=== PATIENT | male | born 1970 | race Caucasian/White ===

== ENCOUNTER 2019-03-29 17:15 | Emergency (ER) | payer BC ==
[~2019-03-29] VITALS: Ht 177.8 cm; Wt 84.5 kg
[~2019-03-29 17:15] MED LIST: ALBUTEROL0.09 MG/A1 IH; AZITHROMYCIN250 MG PO; NO HOME MEDICATIONS; PERCOCET 5/321 UDTAB PO
[2019-03-29 17:20] VITALS: TEMP 97.7
[2019-03-29 17:52] LABS: BASO % 0.4 % (0.0-2.0); EOS # 0.2 (0.0-0.7); EOS % 1.9 % (0-4.0); GRAN % 81.7 % (42.2-75.2); HEMATOCRIT 42.3 % (42.0-52.0); HEMOGLOBIN 14.5 g/dl (13.5-18.0); LYMPH # 0.9 (1.2-3.4); LYMPH % 9.3 % (20.0-51.0); MEAN CELL VOLUME 86 fl (80.0-100.0); MEAN CORPUSCULAR HEMOGLOBIN 30 pg (27.0-31.0); MEAN CORPUSCULAR HGB CONC 34 g/dl (33.0-37.0); MEAN PLATELET VOLUME 9.1 fl (7.4-10.4); MONO # 0.6 (0.1-0.6); MONO % 6.3 % (1.7-9.3); PLATELET COUNT 183 K/mm3 (130-400); REDCELL DISTRIBUTION WIDTH-CV 12.1 % (11.5-14.5)
[2019-03-29 18:04] LABS: ALBUMIN 3.9 gm/dL (3.5-5.0); CALCIUM 8.8 mg/dL (8.4-10.2); CREATININE, serum 0.92 (0.66-1.25); TOTAL PROTEIN 7.5 gm/dL (6.4-8.2)
[2019-03-29] MEDS ORDERED: DOXYCYCLINE 10100 MG PO (18:30)
[2019-03-29 19:08] VITALS: BP 160/90; PULSE 93
== END 2019-03-29 19:08 | disposition home or self-care (01) ==
LOC: COL.ER 17:15
PROVIDERS: Nurse Practitioner
DX: J18.1 Lobar pneumonia, unspecified organism (principal); I10 Essential (primary) hypertension
CPT/HCPCS: J7030

== ENCOUNTER 2021-03-10 13:08 | Inpatient (IN) | payer SELFPAY ==
[~2021-03-10] VITALS: Ht 175.3 cm; Wt 74.3 kg
[~2021-03-10 13:08] MED LIST changes: +DOXYCYCLINE 10100 MG PO
[2021-03-10] MEDS ORDERED: PRINIVIL20 MG PO (13:10)
[2021-03-10 15:17] LABS: GRAN # 5.2 (1.4-6.5); GRAN % 85.7 % (42.2-75.2); HEMATOCRIT 44.7 % (42.0-52.0); HEMOGLOBIN 15.6 g/dl (13.5-18.0); LYMPH # 0.6 (1.2-3.4); LYMPH % 10.1 % (20.0-51.0); MEAN CELL VOLUME 86 fl (80.0-100.0); MEAN CORPUSCULAR HEMOGLOBIN 30 pg (27.0-31.0); MEAN CORPUSCULAR HGB CONC 35 g/dl (33.0-37.0); MEAN PLATELET VOLUME 9.8 fl (7.4-10.4); MONO # 0.2 (0.1-0.6); PLATELET COUNT 142 K/mm3 (130-400); RED BLOOD COUNT 5.19 M/mm3 (4.20-5.60); REDCELL DISTRIBUTION WIDTH-CV 11.9 % (11.5-14.5)
[2021-03-10 15:33] LABS: ALBUMIN 4.1 gm/dL (3.5-5.0); BILIRUBIN,TOTAL 0.7 mg/dL (0.0-1.0); CALCIUM 8.7 mg/dL (8.4-10.2); CREATININE, serum 0.86 (0.66-1.25); POTASSIUM 3.9 mmol/L (3.4-5.0); TOTAL PROTEIN 7.9 gm/dL (6.4-8.2)
[2021-03-10 15:38] LABS: C-REACTIVE PROTEIN 8.1 mg/dL (0.0-0.9)
[2021-03-10 18:26] VITALS: BP 137/81; PULSE 88; TEMP 98.3
--- NOTE | 2021-03-10 19:27 | NUR ---
REPORT RECIEVED FROM ED.
[2021-03-10 19:52] VITALS: BP 128/80; PULSE 93; TEMP 98.4
[2021-03-11 00:13] VITALS: BP 150/94; PULSE 77; TEMP 98
[2021-03-11 04:12] VITALS: BP 122/74; PULSE 77; TEMP 97.8
[2021-03-11 07:25] VITALS: BP 144/82; PULSE 84; TEMP 97.9
[2021-03-11 08:09] LABS: GRAN % 68.3 % (42.2-75.2); HEMATOCRIT 43.7 % (42.0-52.0); LYMPH # 0.7 (1.2-3.4); LYMPH % 25.3 % (20.0-51.0); MEAN CELL VOLUME 87 fl (80.0-100.0); MEAN CORPUSCULAR HEMOGLOBIN 30 pg (27.0-31.0); MEAN CORPUSCULAR HGB CONC 34 g/dl (33.0-37.0); MEAN PLATELET VOLUME 9.7 fl (7.4-10.4); MONO # 0.2 (0.1-0.6); PLATELET COUNT 155 K/mm3 (130-400); REDCELL DISTRIBUTION WIDTH-CV 11.9 % (11.5-14.5)
[2021-03-11 08:22] LABS: ALBUMIN 3.9 gm/dL (3.5-5.0); BILIRUBIN,TOTAL 0.6 mg/dL (0.0-1.0); CALCIUM 8.8 mg/dL (8.4-10.2); CREATININE, serum 0.92 (0.66-1.25); POTASSIUM 4.3 mmol/L (3.4-5.0); TOTAL PROTEIN 7.7 gm/dL (6.4-8.2)
[2021-03-11 08:37] LABS: C-REACTIVE PROTEIN 13.2 mg/dL (0.0-0.9)
--- NOTE | 2021-03-11 10:24 | NUR ---
The patient is COVID positive. SW contacted the patient to discuss discharge plan. The patient lives in [place] with his , Jessie (ph#[phone]), and their kwsmtz-mujj-uyc son. He reports independence with ADLs and does not have any DME. The patient's PCP is Dr. Chrissie Higginbotham and he was receiving his medications from [facility] in [facility]. The patient confirms that he is self pay at this time. He reports that he is working at [employer] now, but has not been there long enough to be able to get health insurance through them. SW consulted financial counselor, Nohelia. The patient does not have a DPOA-HC. The patient plans to return home with his family upon discharge. He is currently requiring 2 liters of oxygen. SW to continue to monitor. *Discharge plan: home with family*
[2021-03-11 12:00] VITALS: BP 134/79; PULSE 82; TEMP 98.5
[2021-03-11 16:26] VITALS: BP 139/95; PULSE 88; TEMP 98.6
--- NOTE | 2021-03-11 19:09 | NUR ---
SCHEDULED MEDICATIONS GIVEN. SHIFT ASSESSMENT PREFORMED. PATIENT CURRENTLY REQUIRING 7 L OF O2 VIA OXY MASK. C/O GENERALIZED ACHES AND PAINS, BUT DENIES THE NEED FOR MEDICATION AT THIS TIME. DR. VILLALPANDO CONTACTED REGARDING PATIENT'S ANXIETY, ATARAX ORDERED AND ADMINISTERED. VSS. PATIENT DENIES ANY FURTHER PAIN, DISCOMFORT, OR NEEDS AT THIS TIME. CALL LIGHT IN REACH.
[2021-03-11 20:14] VITALS: BP 130/85; PULSE 88; TEMP 97.9
[2021-03-12] VITALS (8 sets, daily range): BP systolic 117–155; BP diastolic 71–94; PULSE 70–96; TEMP 97.8–98.8
--- NOTE | 2021-03-12 00:10 | NUR ---
Patient alert and oriented. Patient currently on 9L oxygen via oxymask. Patient denies SOB or dyspnea while at rest. VS stable. All scheduled meds given per AUG. Call light in reach. Will continue to monitor.
[2021-03-12 04:09] LABS: ARTERIAL BLD GAS O2 SATURATION 93.7 % (92-100); ARTERIAL BLD GAS TCO2 CT 30.2; ARTERIAL BLOOD GAS BASE EXCESS 3.6 (-2-2); ARTERIAL BLOOD GAS HCO3 28.8 meq/L (22-26); ARTERIAL BLOOD GAS PCO2 45.5 mmHg (35-45); ARTERIAL BLOOD GAS PO2 65.9 mmHg (80-100); ARTERIAL BLOOD GAS pH 7.42 (7.35-7.45)
--- NOTE | 2021-03-12 06:31 | NUR ---
Patient remains on 9L oxymask over the night. VS stable. Call light in reach.
--- NOTE | 2021-03-12 06:50 | NUR ---
Report received from PARMINDER Yan. Pt. resting in bed w/ eyes closed. Call light and belongings in reach.
[2021-03-12 08:40] LABS: GRAN # 4.2 (1.4-6.5); HEMATOCRIT 40.3 % (42.0-52.0); HEMOGLOBIN 13.9 g/dl (13.5-18.0); LYMPH # 1.2 (1.2-3.4); LYMPH % 21.2 % (20.0-51.0); MEAN CELL VOLUME 86 fl (80.0-100.0); MEAN CORPUSCULAR HEMOGLOBIN 30 pg (27.0-31.0); MEAN CORPUSCULAR HGB CONC 35 g/dl (33.0-37.0); MEAN PLATELET VOLUME 9.7 fl (7.4-10.4); MONO # 0.4 (0.1-0.6); MONO % 6.5 % (1.7-9.3); PLATELET COUNT 189 K/mm3 (130-400); RED BLOOD COUNT 4.71 M/mm3 (4.20-5.60); REDCELL DISTRIBUTION WIDTH-CV 11.9 % (11.5-14.5)
--- NOTE | 2021-03-12 08:41 | NUR ---
Pt. progressing w/ plan of care. Pt. sitting upright in bed eating breakfast. AM meds administered per AUG. Pt. reports he does not feel like there has been a change in his breathing, he reports his cough is persistent. Pt. reports he has been able ambulate in the room independently with a steady gait but gets winded and needs to recooperate after the ambulation. Call light and belongings in reach.
[2021-03-12 08:47] LABS: ALBUMIN 3.3 gm/dL (3.5-5.0); BILIRUBIN,TOTAL 0.4 mg/dL (0.0-1.0); C-REACTIVE PROTEIN 4.2 mg/dL (0.0-0.9); CALCIUM 8.4 mg/dL (8.4-10.2); CREATININE, serum 0.8 (0.66-1.25); POTASSIUM 4.1 mmol/L (3.4-5.0); TOTAL PROTEIN 6.6 gm/dL (6.4-8.2)
--- NOTE | 2021-03-12 18:52 | NUR ---
Pt. progressing w/ plan of care. Pt. tearful and sad today regarding missing his and his family. Encouragement provided. All meds given for day shift today, pt. educated on new medication and pt. verbalized understanding. Report provided to oncoming RNFarrah.
--- NOTE | 2021-03-13 00:12 | NUR ---
Patient A/Ox4. Patient currently on oxygen 9L via HF NC. Patient denies any pain or discomfort. Reports having cough and SOB with activities. No N/V, or diarrhea noted. All meds given per MAR. Call light in reach. Will continue to monitor.
[2021-03-13 03:32] VITALS: BP 118/67; PULSE 55; TEMP 98.5
[2021-03-13 06:06] LABS: ARTERIAL BLD GAS O2 SATURATION 98.4 % (92-100); ARTERIAL BLD GAS TCO2 CT 30.3; ARTERIAL BLOOD GAS BASE EXCESS 4.9 (-2-2); ARTERIAL BLOOD GAS PCO2 41.3 mmHg (35-45); ARTERIAL BLOOD GAS pH 7.47 (7.35-7.45)
[2021-03-13 06:07] LABS: ARTERIAL BLOOD GAS PO2 124.7 mmHg (80-100)
[2021-03-13 07:23] LABS: HEMATOCRIT 39.2 % (42.0-52.0); HEMOGLOBIN 13.6 g/dl (13.5-18.0); MEAN CELL VOLUME 85 fl (80.0-100.0); MEAN CORPUSCULAR HEMOGLOBIN 30 pg (27.0-31.0); MEAN CORPUSCULAR HGB CONC 35 g/dl (33.0-37.0); MEAN PLATELET VOLUME 9.4 fl (7.4-10.4); PLATELET COUNT 216 K/mm3 (130-400); RED BLOOD COUNT 4.61 M/mm3 (4.20-5.60); REDCELL DISTRIBUTION WIDTH-CV 11.9 % (11.5-14.5)
--- NOTE | 2021-03-13 07:30 | NUR ---
Report received from PARMINDER Yan. PT in bed resting, denies needs, will continue to monitor.
[2021-03-13 07:41] LABS: C-REACTIVE PROTEIN 3.1 mg/dL (0.0-0.9); CALCIUM 8.4 mg/dL (8.4-10.2); CREATININE, serum 0.74 (0.66-1.25)
[2021-03-13 08:40] VITALS: BP 139/79; PULSE 96; TEMP 98.3
--- NOTE | 2021-03-13 09:00 | NUR ---
Assessment charted. Pt doing well, feels he is improving with ambulation and not having coughing fits as much. Discussed plan of care, denies needs, denies pain, will continue to monitor.
[2021-03-13 09:50] LABS: LYMPHOCYTE 39 % (20.0-51.0); NEUTROPHILS 53 % (42.0-75.2); PLATELET ESTIMATE NORMAL (NORMAL)
[2021-03-13 11:35] VITALS: BP 118/69; PULSE 64; TEMP 98
--- NOTE | 2021-03-13 11:59 | NUR ---
Pt up to shower for first time since admission, did get very SOB towards end and required assistance back to bed and cueing to breath calmly and calm down. 02 was at 80% upon return to bed and bumped up to 15L OM to help get saturations back up. Pt resting quietly on side at this time, breathing unlabored but taking some time for saturations to return to normal. Will remain until back to 90%
[2021-03-13 17:34] VITALS: BP 134/85; PULSE 79; TEMP 97.9
--- NOTE | 2021-03-13 18:13 | NUR ---
Pt has done better since SOA episode post shower this am. Resting in bed, napping at times, able t oreturn to 9L OM and maintain 94% saturation. Denies needs, will give bedside shift report to nightshift joannee who will resume care.
[2021-03-13 20:50] VITALS: BP 152/87; PULSE 70; TEMP 98.3
[2021-03-13 23:23] VITALS: BP 131/68; PULSE 61; TEMP 98.5
[2021-03-14 04:32] LABS: ARTERIAL BLD GAS O2 SATURATION 97.3 % (92-100); ARTERIAL BLD GAS TCO2 CT 31.1; ARTERIAL BLOOD GAS BASE EXCESS 5.4 (-2-2); ARTERIAL BLOOD GAS HCO3 29.8 meq/L (22-26); ARTERIAL BLOOD GAS PCO2 42.5 mmHg (35-45); ARTERIAL BLOOD GAS PO2 97.5 mmHg (80-100); ARTERIAL BLOOD GAS pH 7.46 (7.35-7.45)
[2021-03-14 04:40] VITALS: BP 127/67; PULSE 60; TEMP 97.8
[2021-03-14 06:55] LABS: HEMATOCRIT 42.3 % (42.0-52.0); HEMOGLOBIN 14.4 g/dl (13.5-18.0); MEAN CELL VOLUME 88 fl (80.0-100.0); MEAN CORPUSCULAR HEMOGLOBIN 30 pg (27.0-31.0); MEAN CORPUSCULAR HGB CONC 34 g/dl (33.0-37.0); MEAN PLATELET VOLUME 9.4 fl (7.4-10.4); PLATELET COUNT 239 K/mm3 (130-400); RED BLOOD COUNT 4.83 M/mm3 (4.20-5.60); REDCELL DISTRIBUTION WIDTH-CV 11.7 % (11.5-14.5)
[2021-03-14 07:14] LABS: C-REACTIVE PROTEIN 1.7 mg/dL (0.0-0.9); CALCIUM 8.5 mg/dL (8.4-10.2); CREATININE, serum 0.76 (0.66-1.25); POTASSIUM 3.8 mmol/L (3.4-5.0)
[2021-03-14 09:43] VITALS: BP 141/83; PULSE 59; TEMP 97.8
--- NOTE | 2021-03-14 09:53 | NUR ---
Pt awake upon entry, no C/O pain at this time. Shift assessment complete, left Pt sitting un bed eating breakfast, call light in reach.
[2021-03-14 12:30] VITALS: BP 133/78; PULSE 66; TEMP 97.9
--- NOTE | 2021-03-14 13:31 | NUR ---
The patient is requiring 12 liters of oxygen. SW contacted the patient to follow up. The patient states that he is feeling miserable. He reports that the doctors told him he will be here a little while. He had no concerns for SW at this time. SW to continue to follow. *Discharge plan: home with family*
--- NOTE | 2021-03-14 14:36 | NUR ---
ATTEMMPTED IS PUT PATIENT INTO COUGHING FOR SEVERAL MINUTES. TOLD PT NOT TO ATTEMPT
[2021-03-14 16:48] VITALS: BP 150/97; PULSE 77; TEMP 98.2
[2021-03-14 20:00] VITALS: BP 129/87; PULSE 82; TEMP 98.4
--- NOTE | 2021-03-14 22:29 | NUR ---
PT RESTING IN BED. EVENING MEDICATIONS GIVEN. LUNG SOUNDS DIMINISHED. PT REFUSES TAKING DEEP BREATHES DUE TO THEM STARTING COUGHING FITS. PT TELLS THIS RN THAT HE WAS INSTRUCTED BY RT NOT TO USE THE INCENTIVE SPIROMETER BETINA TO THE COUGHING LEADING TO DESATURATION. DENIES ANY NEEDS AT THIS TIME. WILL CONTINUE TO MONITOR.
[2021-03-14 23:33] VITALS: BP 137/87; PULSE 66; TEMP 97.3
[2021-03-15 03:59] VITALS: BP 127/56; PULSE 77; TEMP 97.6
--- NOTE | 2021-03-15 05:52 | NUR ---
PT STATES HE IS HAVING A RESTLESS NIGHT. INSTRUCTED PT ON HOW TO GIVE A SPUTUM SAMPLE AND LEFT CONTAINER AT BEDSIDE. PT REPORTS NOT HAVING MUCH SPUTUM COME UP BUT SAYS HE WILL TRY TO GET A SAMPLE. MORNING MEDICATION GIVEN. WILL CONTINUE TO MONITOR.
--- NOTE | 2021-03-15 08:16 | NUR ---
Pt awake upon entry to room, has C/O headache, medications given for relief. Shift assessment complete, left Pt call light in reach, bed in lowest position, needs met.
[2021-03-15 09:17] VITALS: BP 125/81; PULSE 91; TEMP 97.9
--- NOTE | 2021-03-15 09:45 | NUR ---
Reviewed chest x-ray taken yesterday. Catheter tip located in patient's right atrium. Explained tip location to the patient. Sterile dressing change done on left upper arm PICC with insertion site cleansed with ChloraPrep x1, catheter pulled to 4 cm marking on catheter, chlorhexidine impregnated disc applied, skin prep, StatLock, and Tegaderm applied. Purple lumen found with no cap present. Hub cleansed with alcohol swab x2. New cap applied. Flushed with 10 mL normal saline with good blood return noted. No signs or symptoms of IV complications noted. Dr. Fernandez informed Of Tip Location and lumen found with no cap. Primary care nurse informed.
[2021-03-15 12:10] VITALS: BP 129/93; PULSE 78; TEMP 98.5
[2021-03-15 16:15] VITALS: BP 130/89; PULSE 94; TEMP 98.6
[2021-03-15 19:16] VITALS: BP 161/92; PULSE 72; TEMP 97.7
--- NOTE | 2021-03-15 21:14 | NUR ---
PT RESTING IN BED, LAYING PRONED. EVENING MEDICATIONS GIVEN. PT LUNGS AUSCULTATED WITH COARSE CRACKLES. BREATHING IS TACHYPNEIC AND SHALLOW, PT REPORTS THIS IS BECAUSE HE JUST TURNED AND THAT ACTIVITY MAKES HIM BREATHLESS. DENIES ANY NEEDS AT THIS TIME. WILL CONTINUE TO MONITOR.
[2021-03-15 22:28] VITALS: BP 136/91; PULSE 76; TEMP 98.4
[2021-03-16 03:29] VITALS: BP 120/87; PULSE 68; TEMP 98.5
--- NOTE | 2021-03-16 06:15 | NUR ---
PT HAD A RESTFUL EVENING, LAYING PRONED IN BED. DENIES ANY NEEDS AT THIS TIME. WILL CONTNUE TO MONITOR.
--- NOTE | 2021-03-16 08:57 | NUR ---
Pt awake in bed upon entry, no C/O pain at this time. Shift assessment complete, left Pt call light in reach, bed in lowest position.
[2021-03-16 09:19] VITALS: BP 120/72; PULSE 91; TEMP 98.4
[2021-03-16 12:12] VITALS: BP 134/95; PULSE 89; TEMP 97.9
[2021-03-16 16:19] VITALS: BP 101/70; PULSE 84; TEMP 97.7
[2021-03-16 19:34] VITALS: BP 116/79; PULSE 83; TEMP 97.6
[2021-03-17] VITALS (7 sets, daily range): BP systolic 108–144; BP diastolic 61–89; PULSE 72–120; TEMP 97.6–98.3
--- NOTE | 2021-03-17 05:21 | NUR ---
Awake, alert, oriented x4, tolerating O2@9L per oxymask, VS stable, tolerating general diet with 1500ml fluid restriction, denies pain, call segovia w/i reach.
[2021-03-17 08:38] LABS: BASO % 0.1 % (0.0-2.0); EOS # 0.3 (0.0-0.7); EOS % 3.3 % (0-4.0); GRAN # 5.2 (1.4-6.5); GRAN % 64.7 % (42.2-75.2); HEMATOCRIT 44.9 % (42.0-52.0); LYMPH % 24.7 % (20.0-51.0); MEAN CELL VOLUME 85 fl (80.0-100.0); MEAN CORPUSCULAR HEMOGLOBIN 30 pg (27.0-31.0); MEAN CORPUSCULAR HGB CONC 36 g/dl (33.0-37.0); MEAN PLATELET VOLUME 9.1 fl (7.4-10.4); MONO # 0.5 (0.1-0.6); MONO % 6.2 % (1.7-9.3); PLATELET COUNT 359 K/mm3 (130-400); RED BLOOD COUNT 5.29 M/mm3 (4.20-5.60); REDCELL DISTRIBUTION WIDTH-CV 11.8 % (11.5-14.5)
--- NOTE | 2021-03-17 08:44 | NUR ---
Pt resting in bed upon entry, he is A/O x4. His breathing is even and unlabored on 8L O2 via OM. Reports SOB on exertion. Denies any pain. NO N/V/D. Pt denies any needs at this time. Call light within reach.
[2021-03-17 08:54] LABS: ANION GAP 7 mmol/L (7-16); BLOOD UREA NITROGEN 19 mg/dL (9-20); CARBON DIOXIDE 31 mmol/L (22-30); CHLORIDE 96 mmol/L (98-107); CREATININE, serum 0.73 (0.66-1.25); GLUCOSE 218 mg/dL (74-106); MAGNESIUM 1.9 mg/dL (1.6-2.3); POTASSIUM 3.7 mmol/L (3.4-5.0); SODIUM 134 mmol/L (137-145)
[2021-03-17 08:55] LABS: C-REACTIVE PROTEIN < 0.5 mg/dL (0.0-0.9)
--- NOTE | 2021-03-17 13:21 | NUR ---
The patient is down to 8 liters of oxygen. SW to continue to monitor.
--- NOTE | 2021-03-17 17:52 | NUR ---
Pt rested in bed most of the day, visited with family at the window for a while today. Feels that he is recovering better from exertion than before. No needs at this time. Call light within reach.
[2021-03-18 00:22] VITALS: BP 116/76; PULSE 76; TEMP 98.4
[2021-03-18 04:58] VITALS: BP 115/73; PULSE 71; TEMP 97.5
--- NOTE | 2021-03-18 05:05 | NUR ---
Awake, alert, orineted x 4, able to make needs known, tolerating O2@5L per NC, denies pain, call bellw /i reach.
[2021-03-18 08:56] VITALS: BP 120/87; PULSE 87; TEMP 97.7
[2021-03-18 12:16] VITALS: BP 116/83; PULSE 81; TEMP 98.5
[2021-03-18 16:21] VITALS: BP 117/88; PULSE 87; TEMP 98.4
[2021-03-18 20:53] VITALS: BP 119/73; PULSE 97; TEMP 97.6
[2021-03-19 00:57] VITALS: BP 102/76; PULSE 59; TEMP 97.8
[2021-03-19 04:40] VITALS: BP 123/85; PULSE 73; TEMP 98.3
--- NOTE | 2021-03-19 04:58 | NUR ---
Awake, alert, oriented x 4, able to make needs known, VS stable, tolerating O2@4L per oxymask, denies pain.
--- NOTE | 2021-03-19 08:00 | NUR ---
Patient sitting up in bed, A&Ox4. VSS 4L oxymask, no reported SOB at rest. Denies pain and discomfort. Reports increased anxiety r/t missing family. Droplet/contact precautions in place. No further needs expressed. Call light within reach
[2021-03-19 08:25] VITALS: BP 138/94; PULSE 83; TEMP 98
[2021-03-19] MEDS ORDERED: PROAIR HFA0.09 MG/AC IH (09:29)
[2021-03-19] MEDS ORDERED: OXYGEN (09:31)
--- NOTE | 2021-03-19 09:45 | NUR ---
Faxed Oxygen Order to [facility]. Awaiting response from philosophy and religion instructor.
--- NOTE | 2021-03-19 09:58 | NUR ---
Spoke with on naomi at [facility]. They will contact patient's to setup O2 in home and give the O2 to bring to the hospital for machine operator hop picker. If they can not make arrangements they Stuart reports that he will come to the hospital directly. SW will follow-up with .
--- NOTE | 2021-03-19 12:12 | NUR ---
ADAM update: Coordinated with on care support to have oxygen. reports that she has recieved it and will come to picking tech at 1:30 p.m. NF
--- NOTE | 2021-03-19 13:40 | NUR ---
Discharge paperwork reviewed with the patient. Patient verbalized an understanding to follow doctors orders and to quarantine for 14 days from first testing positive. Portable O2 tamk brought to the patient. No further needs expressed. PICC removed by PARMINDER Bingham. Personal belongings and discharge paperwork with the patient.
== END 2021-03-19 13:45 | disposition home or self-care (01) | DRG 177 ==
LOC: COL.ER 13:08 → MEDICAL 15:17
PROVIDERS: Family Medicine; Internal Medicine; ADMIT Internal Medicine
PROC: 02HV33Z Insertion of Infusion Device into Superior Vena Cava, Percutaneous Approach (ICD-10-PCS; principal; 2021-03-14)
PROC: XW043E5 Introduction of Remdesivir Anti-infective into Central Vein, Percutaneous Approach, New Technology Group 5 (ICD-10-PCS; 2021-03-15)
DX: U07.1 COVID-19 (principal); J96.01 Acute respiratory failure with hypoxia; J12.82 Pneumonia due to coronavirus disease 2019; Z87.891 Personal history of nicotine dependence
CPT/HCPCS: 99232-AI; 99233-AI; 99239; A9284; C1751; J0696; J1650; J1885; J2405; J7030; J7050; J8540; Q0249

== ENCOUNTER 2021-05-07 12:56 | Inpatient (IN) | payer SELFPAY ==
[~2021-05-07] VITALS: Ht 175.3 cm; Wt 73.2 kg
[2021-05-07] VITALS (270 sets, daily range): BP systolic 105–133; BP diastolic 80–111; PULSE 91–114; TEMP 98–98.8; O2SAT 96–100
[~2021-05-07 12:56] MED LIST changes: +OXYGEN; +PRINIVIL20 MG PO; +PROAIR HFA0.09 MG/AC IH
[2021-05-07 13:53] LABS: BASO # 0.1 K/mm3 (0.0-0.2); BASO % 0.6 % (0.0-2.0); EOS % 0.3 % (0-4.0); GRAN # 6.2 K/mm3 (1.4-6.5); GRAN % 70.2 % (42.2-75.2); HEMATOCRIT 49.4 % (42.0-52.0); HEMOGLOBIN 17.4 g/dl (13.5-18.0); LYMPH % 22.7 % (20.0-51.0); MEAN CELL VOLUME 86 fl (80.0-100.0); MEAN CORPUSCULAR HEMOGLOBIN 30 pg (27.0-31.0); MEAN CORPUSCULAR HGB CONC 35 g/dl (33.0-37.0); MEAN PLATELET VOLUME 9.9 fl (7.4-10.4); MONO # 0.5 K/mm3 (0.1-0.6); MONO % 5.5 % (1.7-9.3); PLATELET COUNT 313 K/mm3 (130-400); RED BLOOD COUNT 5.76 M/mm3 (4.20-5.60); REDCELL DISTRIBUTION WIDTH-CV 12.9 % (11.5-14.5)
[2021-05-07 14:17] LABS: ALBUMIN 4.1 gm/dL (3.5-5.0); BILIRUBIN,TOTAL 0.8 mg/dL (0.2-1.2); C-REACTIVE PROTEIN 0.11 mg/dL (0.00-0.50); CREATININE, serum 1.85 mg/dL (0.72-1.25); POTASSIUM 4.9 mmol/L (3.5-4.5)
[2021-05-07 14:22] LABS: TROPONIN-I 0.03 ng/mL (0.00-0.033)
[2021-05-07 15:24] LABS: COLLECTION METHOD CLEAN CATCH
[2021-05-07 15:32] LABS: MUCOUS Present /lpf; PH 5 (5-8); SQUAMOUS EPITHELIAL 0-2 /hpf; URINE APPEARANCE Clear; URINE BACTERIA None Seen /hpf; URINE BILIRUBIN Negative (NEGATIVE); URINE BLOOD 1+ (NEGATIVE); URINE COLOR Yellow; URINE GLUCOSE 3+ (NEGATIVE); URINE KETONE 2+ (NEGATIVE); URINE LEUKOCYTE ESTERASE Negative (NEGATIVE); URINE NITRATE Negative (NEGATIVE); URINE PROTEIN(semi-quant) 1+ (NEGATIVE); URINE RBC 0-2 /hpf; URINE UROBILINOGEN Negative (NEGATIVE)
[2021-05-07 16:31] LABS: CALCIUM 8.4 mg/dL (8.4-10.2); CREATININE, serum 1.29 mg/dL (0.72-1.25); POTASSIUM 4.5 mmol/L (3.5-4.5)
[2021-05-07] MEDS ORDERED: NEXIUM 40MG40 MG PO (16:49)
[2021-05-07 20:23] LABS: CALCIUM 7.8 mg/dL (8.4-10.2); CREATININE, serum 1.09 mg/dL (0.72-1.25); POTASSIUM 3.7 mmol/L (3.5-4.5)
[2021-05-07 22:35] LABS: CALCIUM 7.6 mg/dL (8.4-10.2); CREATININE, serum 0.95 mg/dL (0.72-1.25); POTASSIUM 3.4 mmol/L (3.5-4.5)
[2021-05-08] VITALS (326 sets, daily range): BP systolic 101–147; BP diastolic 57–103; PULSE 78–90; TEMP 97.3–98.6; O2SAT 88–100
--- NOTE | 2021-05-08 01:07 | NUR ---
Patient care, medication administration and nursing documentation occurred during a Daylight Savings Time Change.
[2021-05-08 01:11] LABS: CALCIUM 7.4 mg/dL (8.4-10.2); CREATININE, serum 0.91 mg/dL (0.72-1.25); POTASSIUM 3.6 mmol/L (3.5-4.5)
[2021-05-08 03:03] LABS: CALCIUM 7.6 mg/dL (8.4-10.2); CREATININE, serum 0.78 mg/dL (0.72-1.25); POTASSIUM 3.3 mmol/L (3.5-4.5)
--- NOTE | 2021-05-08 05:42 | NUR ---
PT A/O X4. INSULIN GTT OFF PREVIOUSLY DOCUMENTED. DENIES NAUSEA. TOLERATING WATER AND JELLO. PT SLEPT ON AND OFF. DENIES NEEDS AT THIS TIME. CALL LIGHT WITHIN REACH.
[2021-05-08 07:38] LABS: CALCIUM 7.5 mg/dL (8.4-10.2); CREATININE, serum 0.76 mg/dL (0.72-1.25); POTASSIUM 3.6 mmol/L (3.5-4.5)
[2021-05-08 07:48] LABS: BASO % 0.5 % (0.0-2.0); EOS # 0.2 K/mm3 (0.0-0.7); EOS % 2.7 % (0-4.0); GRAN # 3.7 K/mm3 (1.4-6.5); GRAN % 61.8 % (42.2-75.2); LYMPH # 1.6 K/mm3 (1.2-3.4); LYMPH % 27.1 % (20.0-51.0); MEAN CELL VOLUME 84 fl (80.0-100.0); MEAN CORPUSCULAR HGB CONC 36 g/dl (33.0-37.0); MONO # 0.5 K/mm3 (0.1-0.6); MONO % 7.6 % (1.7-9.3); RED BLOOD COUNT 3.77 M/mm3 (4.20-5.60)
[2021-05-08 07:59] LABS: HEMATOCRIT 31.6 % (42.0-52.0); HEMOGLOBIN 11.3 g/dl (13.5-18.0); MEAN CORPUSCULAR HEMOGLOBIN 30 pg (27.0-31.0); PLATELET COUNT 180 K/mm3 (130-400)
--- NOTE | 2021-05-08 13:31 | NUR ---
PT ARRIVED ON FLOOR FROM ICU. PT ALERT/ORIENT. PLEASANT AND COOPERATIVE TO CARE. RESTING IN BED WITH IN ROOM. DENIES PAIN. NO NEEDS AT THIS TIME. CALL DOHERTY IN REACH
--- NOTE | 2021-05-08 17:26 | NUR ---
PT WAS TRANSFERRED TO SURGICAL FROM ICU. PT DOING WELL. DENIES PAIN. NO NEEDS AT THIS TIME. CALL DOHERTY IN REACH. PT INDEPENDENT IN ROOM. WITH PT
--- NOTE | 2021-05-08 21:33 | NUR ---
PT'S EVENING BLOOD SUGAR READING >260. PT SHOWING NO OBVIOUS SIGNS OF HYPERGLYCEMIA. NO c/o PAIN. NO N/V.
[2021-05-09] VITALS (7 sets, daily range): BP systolic 100–121; BP diastolic 63–75; PULSE 73–93; TEMP 97.1–98.1
[2021-05-09 06:58] LABS: BASO % 0.5 % (0.0-2.0); EOS # 0.1 K/mm3 (0.0-0.7); EOS % 2.6 % (0-4.0); GRAN # 1.8 K/mm3 (1.4-6.5); GRAN % 42.5 % (42.2-75.2); HEMOGLOBIN 11.7 g/dl (13.5-18.0); LYMPH # 1.8 K/mm3 (1.2-3.4); LYMPH % 43.1 % (20.0-51.0); MEAN CELL VOLUME 83 fl (80.0-100.0); MEAN CORPUSCULAR HEMOGLOBIN 31 pg (27.0-31.0); MEAN CORPUSCULAR HGB CONC 37 g/dl (33.0-37.0); MEAN PLATELET VOLUME 9.5 fl (7.4-10.4); MONO # 0.5 K/mm3 (0.1-0.6); MONO % 10.8 % (1.7-9.3); PLATELET COUNT 158 K/mm3 (130-400); RED BLOOD COUNT 3.84 M/mm3 (4.20-5.60)
[2021-05-09 07:05] LABS: HEMATOCRIT 31.9 % (42.0-52.0)
[2021-05-09 07:16] LABS: CALCIUM 8.1 mg/dL (8.4-10.2); CREATININE, serum 0.68 mg/dL (0.72-1.25)
[2021-05-09 07:24] LABS: POTASSIUM 2.8 mmol/L (3.5-4.5)
--- NOTE | 2021-05-09 08:10 | NUR ---
Patient alert and oriented, answers questions appropriately. See assessment. Patient has several questions and concerns r/t new diagnosis of Diabetes, answered to best of this nurses' ability. Will notify social work to attempt to set up diabetes management post discharge. Patient also has concerns with finances as he is not currently employeed r/t Covid diagnosis and subsequent hospitalization. Becomes tearful when talking about not being able to support his family, allowed to voice concerns. No other c/o at this time.
--- NOTE | 2021-05-09 08:15 | NUR ---
K+ 2.8 reported to VINCE Cross with hospitalist.
--- NOTE | 2021-05-09 11:31 | NUR ---
America, Hospitalist VINCE stated she notified Dr Schmidt of consult.
--- NOTE | 2021-05-09 11:37 | NUR ---
ADAM collaborated with the clinical team. The patient is a new diabetic. He is self pay. The pharmacist plans to contact the [facility] to inquire what insulin they have in supply. ADAM attended clincial rounds. The patient may be able to discharge tomorrow. ADAM then followed up with patient and his , Jessie (ph#[phone]), to discuss discharge plan. The patient lives in [place] with his and their caiwed-amwn-lgo son. He reports independence with ADLs and does not have any assistive devices. He state that he does have nocturnal oxygen from [facility]. The patient's PCP is Dr. Chrissie Higginbotham and he was receiving his medications from [facility] in . He confirms that he is self pay. He reports that he has worked for [employer] for 22 years, but that [employer] is shutting down. He states that he quit [employer] in January to get a jump start on things and got a job at [employer]. He reports that three days into training, he got COVID and has not been been able to go back since then. 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 He reports that his family has $27 to their name and that he will need assistance with his meds. ADAM informed him how we could provide a med voucher to [facility] for his meds this time and how we plan to get his insulin from the [facility]. The patient and his verbalized understanding. ADAM presented the Attestation Form for the [facility]. ADAM assisted the patient and his with completing the form. The patient signed the form. ADAM provided the patient's with [facility]'s Resource Guide and a GoodRx card. Jessie reports that she has already been in contact with [employer] and they are helping them with the utility bills. The patient does not have a DPOA-HC, but he was interested in completing one while here. ADAM provided the form. The patient designated his and his daughter, Casey Luna, as the alternate. ADAM and MADINA Lee, witnessed the patient's signature. ADAM provided the patient and with the original and some copies. ADAM placed a copy in the patient's chart. The patient plans to return home with his family upon discharge. SW to fax the attestation and scripts [facility], once insulin recs are finalized. *Discharge plan: home with family*
--- NOTE | 2021-05-09 11:59 | NUR ---
First visit from the suture gauger. prayed with patient. No other needs right now.
--- NOTE | 2021-05-09 12:23 | NUR ---
Dr Schmidt here to see patient.
--- NOTE | 2021-05-09 13:29 | NUR ---
Upon completion of the Attestation. The patient has been and will make more than the 200% of federal poverty guidelines for the program. SW notified the pharmacist. SW met with the patient and his and updated them on this.
--- NOTE | 2021-05-09 20:44 | NUR ---
Pt. up ambulating in room at this time. Pt. is A&OX3, assessment complete. INT's to lt. forearm and rt. ac. Pt. denies pain or other needs, call light within reach.
[2021-05-10] VITALS (14 sets, daily range): BP systolic 91–118; BP diastolic 52–83; PULSE 64–82; TEMP 97.7–98.3
[2021-05-10 06:54] LABS: PROTHROMBIN TIME 10.7 SECONDS (9.7-12.8)
[2021-05-10 07:02] LABS: BASO % 0.8 % (0.0-2.0); EOS # 0.1 K/mm3 (0.0-0.7); EOS % 1.8 % (0-4.0); GRAN # 1.3 K/mm3 (1.4-6.5); GRAN % 34.2 % (42.2-75.2); LYMPH % 52.5 % (20.0-51.0); MEAN CELL VOLUME 85 fl (80.0-100.0); MEAN CORPUSCULAR HEMOGLOBIN 30 pg (27.0-31.0); MEAN CORPUSCULAR HGB CONC 36 g/dl (33.0-37.0); MEAN PLATELET VOLUME 10.2 fl (7.4-10.4); MONO # 0.4 K/mm3 (0.1-0.6); MONO % 10.4 % (1.7-9.3); PLATELET COUNT 178 K/mm3 (130-400)
[2021-05-10 07:05] LABS: HEMATOCRIT 33.8 % (42.0-52.0)
[2021-05-10 07:12] LABS: CALCIUM 8.7 mg/dL (8.4-10.2); CREATININE, serum 0.72 mg/dL (0.72-1.25); POTASSIUM 3.8 mmol/L (3.5-4.5)
--- NOTE | 2021-05-10 08:00 | NUR ---
PATIENT IS A&O. VSS. DENIES PAIN OR N/V. PATIENT SCHEDULED FOR HEART CATH TODAY. NPO. AM BS WAS 148. AM MEDS GIVEN WITH SIPS OF WATER PER . HEAD TO TOE ASSESSMENT COMPLETE. NO OTHER NEEDS. CALL LIGHT IN REACH. AT BEDSIDE.
--- NOTE | 2021-05-10 14:03 | NUR ---
PATIENT GOING DOWN TO CHILD WELFARE CONSULTANT VIA BED. AT BEDSIDE. CONSENT ON CHART.
--- NOTE | 2021-05-10 14:38 | NUR ---
SEE MERGE DOCUMENTATION FOR MEDICATION ADMINISTRATION TIMES AND INTRA/POST PROCEDURE SEDATION ASSESSMENTS.
--- NOTE | 2021-05-10 17:00 | NUR ---
PATIENT DOING WELL. VSS. NO C/O PAIN OR NAUSEA. LET OUT 5CC OF AIR OUT OF RIGHT RADIAL BAND
--- NOTE | 2021-05-10 20:00 | NUR ---
PATIENT IS ALERT AND ORIENTED X4. PATIENT IS ON HEART HEALTHY DIET AND ACCUCHECKS Q4. PATIENT IS ON TELE AND HAS IV TO RIGHT AC. PATIENT HAD HEART CATH THROUGH RIGHT RADIAL TODAY. NO SIGNS OF BLEEDING. PATIENT DENIES PAIN OR FURTHER NEEDS AT THIS TIME. CALL LIGHT WITHIN REACH. HEAD TO TOE ASSESSMENT COMPLETE.
[2021-05-11] VITALS (8 sets, daily range): BP systolic 96–110; BP diastolic 68–76; PULSE 70–78; TEMP 97.8–98.2
--- NOTE | 2021-05-11 06:19 | NUR ---
PATIENT DID WELL THROUGHOUT NIGHT. SLEPT ON AND OFF THROUGHOUT NIGHT. NO FURTHER NEEDS AT THIS TIME. WILL REPORT TO DAYSHIFT.
--- NOTE | 2021-05-11 07:15 | NUR ---
Shift assessment completed. Patient is on a hearth healthy diet with Accuchecks Q4. Patient is on TELE. INT in right and left forearm with no signs of redness or swelling. Right radial cath site CDI with no signs of redness or swelling. Patient denies pain. C/O constipation x3days.Notified primary nurse. Placed callight within reach.
[2021-05-11 08:31] LABS: CALCIUM 9.8 mg/dL (8.4-10.2); CREATININE, serum 0.88 mg/dL (0.72-1.25); POTASSIUM 3.9 mmol/L (3.5-4.5)
[2021-05-11] MEDS ORDERED: TOPROL XL 25MG25 MG PO (13:21)
[2021-05-11] MEDS ORDERED: ASPIRIN E.C. 8181 MG PO (13:21)
[2021-05-11] MEDS ORDERED: GLUCOPHAGE500 MG/TAB PO (13:22)
--- NOTE | 2021-05-11 13:46 | NUR ---
Initial visit; Patient thanked Vice [employer] for looking in on him and offering prayer and God's blessings.
--- NOTE | 2021-05-11 14:13 | NUR ---
The patient is to discharge back home with his today, 05/11. The patient is in need of prescription assistance. ADAM provided the patient with a med voucher to [facility]. The total is $52.05. ADAM notified and faxed the med voucher to Myron at [facility]. No additional needs at this time.
--- NOTE | 2021-05-11 15:37 | NUR ---
Patient discharged. Walked out of the facility by this RN. Patient education provided without any difficulty.
== END 2021-05-11 15:30 | disposition home or self-care (01) | DRG 638 ==
LOC: COL.ER 12:56 → ICU 14:21 → COL.ER 14:21 → ICU 05-08 19:11 → SURG 05-08 19:11
PROVIDERS: Family Medicine; Internal Medicine; Physician Assistant; ADMIT Student in an Organized Health Care Education/Training Program
PROC: 4A023N7 Measurement of Cardiac Sampling and Pressure, Left Heart, Percutaneous Approach (ICD-10-PCS; principal; 2021-05-09)
PROC: B2111ZZ Fluoroscopy of Multiple Coronary Arteries using Low Osmolar Contrast (ICD-10-PCS; 2021-05-09)
DX: E11.10 Type 2 diabetes mellitus with ketoacidosis without coma (principal); N17.9 Acute kidney failure, unspecified; I42.0 Dilated cardiomyopathy; I10 Essential (primary) hypertension; E87.5 Hyperkalemia; I44.7 Left bundle-branch block, unspecified; I77.819 Aortic ectasia, unspecified site
CPT/HCPCS: OP; 99223-AI; 99232-AI; 99233-AI; 99239; C1769; J1644; J1650; J1815; J2250; J2405; J3010; J3475; J3480; J7030; J7120; Q9967

== ENCOUNTER 2021-08-26 17:26 | Emergency (ER) | payer SELFPAY ==
[~2021-08-26] VITALS: Ht 175.3 cm; Wt 79.5 kg
[~2021-08-26 17:26] MED LIST changes: +ASPIRIN E.C. 8181 MG PO; +GLUCOPHAGE500 MG/TAB PO; +NEXIUM 40MG40 MG PO; +TOPROL XL 25MG25 MG PO
[2021-08-26 17:41] VITALS: TEMP 98
[2021-08-26 18:25] LABS: BASO # 0.1 K/mm3 (0.0-0.2); BASO % 0.7 % (0.0-2.0); EOS # 0.2 K/mm3 (0.0-0.7); EOS % 2.4 % (0.0-4.0); GRAN # 3.2 K/mm3 (1.4-6.5); GRAN % 45.3 % (42.2-75.2); HEMOGLOBIN 16.1 g/dl (13.5-18.0); LYMPH # 3.2 K/mm3 (1.2-3.4); LYMPH % 45.7 % (20.0-51.0); MEAN CELL VOLUME 83 fl (80.0-100.0); MEAN CORPUSCULAR HEMOGLOBIN 30 pg (27-31); MEAN CORPUSCULAR HGB CONC 36 g/dl (33.0-37.0); MEAN PLATELET VOLUME 9.2 fl (7.4-10.4); MONO # 0.4 K/mm3 (0.1-0.6); MONO % 5.6 % (1.7-9.3); PLATELET COUNT 238 K/mm3 (130-400); RED BLOOD COUNT 5.43 M/mm3 (4.20-5.60); REDCELL DISTRIBUTION WIDTH-CV 11.6 % (11.5-14.5)
[2021-08-26 18:40] LABS: ALANINE AMINOTRANSFERASE 17 U/L (0-55); ALBUMIN 3.9 gm/dL (3.5-5.0); ALKALINE PHOSPHATASE 55 U/L (40-150); ANION GAP 9 mmol/L (7-16); AST,SGOT 14 U/L (5-34); BILIRUBIN,TOTAL 0.7 mg/dL (0.2-1.2); BLOOD UREA NITROGEN 18 mg/dL (8-26); CALCIUM 9.4 mg/dL (8.4-10.2); CARBON DIOXIDE 23 mmol/L (22-29); CHLORIDE 106 mmol/L (98-107); CREATININE, serum 0.84 mg/dL (0.72-1.25); GLUCOSE 104 mg/dL (70-99); SODIUM 138 mmol/L (136-145); TOTAL PROTEIN 7.7 gm/dL (6.2-8.1)
[2021-08-26 18:46] LABS: TROPONIN-I < 0.010 ng/mL (0.00-0.033)
[2021-08-26 21:31] VITALS: BP 144/78; PULSE 76
== END 2021-08-26 21:31 | disposition home or self-care (01) ==
LOC: COL.ER 17:26
PROVIDERS: Physician Assistant
DX: R07.89 Other chest pain (principal); Z86.79 Personal history of other diseases of the circulatory system; Z98.61 Coronary angioplasty status; Z86.16 Personal history of COVID-19; Z79.899 Other long term (current) drug therapy
CPT/HCPCS: J2060; J7030

== ENCOUNTER 2023-12-17 18:18 | Inpatient (IN) | payer SELFPAY ==
[~2023-12-17] VITALS: Ht 175.3 cm; Wt 82.0 kg
[2023-12-17] MEDS ORDERED: NS 1,000 ML IV ONE (19:00)
[2023-12-17] MEDS ORDERED: Acetaminophen 500 MG TAB PO ONE (19:15)
[2023-12-17] MEDS ORDERED: fentaNYL 50 MCG/ML 2 ML VIAL IV ONE (19:15)
[2023-12-17 19:56] LABS: BASO % 0.5 % (0.0-2.0); EOS % 0.7 % (0.0-4.0); GRAN # 4.2 K/mm3 (1.4-6.5); GRAN % 69.4 % (42.2-75.2); HEMOGLOBIN 12.7 g/dl (13.5-18.0); LYMPH # 1.2 K/mm3 (1.2-3.4); LYMPH % 20.3 % (20.0-51.0); MEAN CELL VOLUME 85 fl (80.0-100.0); MEAN CORPUSCULAR HEMOGLOBIN 30 pg (27-31); MEAN CORPUSCULAR HGB CONC 35 g/dl (33.0-37.0); MEAN PLATELET VOLUME 9.2 fl (7.4-10.4); MONO # 0.5 K/mm3 (0.1-0.6); MONO % 8.6 % (1.7-9.3); PLATELET COUNT 181 K/mm3 (130-400); RED BLOOD COUNT 4.31 M/mm3 (4.20-5.60); REDCELL DISTRIBUTION WIDTH-CV 12.1 % (11.5-14.5)
[2023-12-17 19:58] LABS: COLLECTION METHOD CLEAN CATCH
[2023-12-17 19:58] LABS: HEMATOCRIT 36.5 % (42.0-52.0)
[2023-12-17 19:59] LABS: INR 1.2 (0.8-3.0); PROTHROMBIN TIME 13.4 SECONDS (9.7-12.8)
[2023-12-17 20:14] LABS: PH 5.5 (5.0-8.5); URINE APPEARANCE CLEAR (CLEAR/HAZY); URINE BLOOD 2+ (NEGATIVE); URINE COLOR YELLOW (YELLOW); URINE GLUCOSE NEGATIVE (NEGATIVE); URINE KETONE NEGATIVE (NEGATIVE); URINE NITRATE NEGATIVE (NEGATIVE); URINE PROTEIN(semi-quant) 1+ (NEGATIVE); URINE UROBILINOGEN 0.2 E.U/dL (0.2-1.0)
[2023-12-17 20:19] LABS: ALBUMIN 2.7 g/dL (3.5-5.0); BILIRUBIN,TOTAL 0.5 mg/dL (0.2-1.2); CREATININE, serum 0.96 mg/dL (0.72-1.25); POTASSIUM 3.7 mEq/L (3.5-4.5); TOTAL PROTEIN 7.3 g/dl (6.2-8.1)
[2023-12-17 20:25] LABS: TROPONIN-I 0.022 ng/mL (0.00-0.033)
[2023-12-17] MEDS ORDERED: NS 50 ML IV SCH (21:08)
[2023-12-17] MEDS ORDERED: Iohexol 350 - 100 ML VIAL IV ONE (21:08)
[2023-12-17] MEDS ORDERED: Doxycycline Hyclate 100 MG in NS 150 ML IV ONE (21:30)
[2023-12-17] MEDS ORDERED: cefTRIAXone 2 G in Water For Injection,Sterile 20 ML IV ONE (21:30)
[2023-12-17] MEDS ORDERED: NOVOLIN N100 U/ML SQ (23:04)
[2023-12-17] MEDS ORDERED: NOVOLIN R100 U/ML SQ (23:05)
[2023-12-17] MEDS ORDERED: NEXIUM 40MG40 MG PO (23:06)
[2023-12-17] MEDS ORDERED: COREG 3.123.125 MG/T PO (23:08)
[2023-12-18] VITALS (9 sets, daily range): BP systolic 131–151; BP diastolic 67–91; PULSE 78–92; TEMP 97.5–99.9
[2023-12-18] MEDS ORDERED: Albuterol/Ipratropium 3 MG-0.5 MG/3 ML Neb Soln IH PRN (00:15)
[2023-12-18] MEDS ORDERED: Albuterol/Ipratropium 3 MG-0.5 MG/3 ML Neb Soln IH SCH (02:00)
[2023-12-18] MEDS ORDERED: Acetaminophen 325 MG TAB PO PRN (02:15)
[2023-12-18] MEDS ORDERED: traMADol 50 MG TAB PO PRN (02:15)
[2023-12-18] MEDS ORDERED: Doxycycline Monohydrate 100 MG CAP PO SCH (07:00)
[2023-12-18] MEDS ORDERED: Glucagon 1 MG VIAL IM PRN (07:30)
[2023-12-18] MEDS ORDERED: Dextrose 50% Water 25 GM/50 ML SYRINGE IV PRN (07:30)
[2023-12-18] MEDS ORDERED: Dextrose (Glucose) 15 GM (4 x 3.75 GM) Chewable TABLET PACK PO PRN (07:30)
[2023-12-18] MEDS ORDERED: Carvedilol 3.125 MG TAB PO SCH (08:00)
[2023-12-18] MEDS ORDERED: Insulin Lispro (HumaLOG) SQ SCH (08:00)
[2023-12-18] MEDS ORDERED: Lisinopril 20 MG TAB PO SCH (09:00)
--- NOTE | 2023-12-18 09:43 | NUR ---
Physics Instructor met with patient to discuss discharge planning. Patient had a lot of coughing during intake but was able to answer questions. Patient lives in [place] with his , Jessie (ph#[phone]) and their 14 year old son, Valentin Llanos. ADAM asked if Dr. Higginbotham is his PCP and he stated "I guess so" and that he has not seen a physician in quite some time. 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 Patient stated his works for [employer] and also does not have insurance. Patient is diabetic and checks his sugars regularly. Patient stated he takes Novilin which he purchases at [facility]. Patient advised whenever he needs medications he uses the [facility]. Patient is independent with ADLS and does not use any DME besides his glucometer. Patient is not sure if he has DPOA-HC. Patient plans to return home at time of discharge. SW contacted Financial Counseling to assist with FAA. SW met patient's later in the hallway. Discharge Plan; Home
[2023-12-18] MEDS ORDERED: ASPIRIN E.C. 8181 MG PO (10:39)
--- NOTE | 2023-12-18 10:48 | NUR ---
Patient alert and oriented x4. Dyspnea and shortness of breath noted with exertion or after coughing/deep breaths. Patient states deep breaths trigger coughing which make it difficult to catch his breath. Stable on room air. No mucus production noted with cough. Crackles noted to right lower lobe lung sounds. Patient tolerating fluids well PO, states he ate a couple bites of breakfast but it made him nauseous. Patient complains of headache and back pain, PRN Tramadol administered. Family at bedside. Call light within reach, all needs met at this time.
[2023-12-18] MEDS ORDERED: guaiFENesin/Dextromethorphan Oral Soln 200-20 MG/10 ML UD PO PRN (11:45)
[2023-12-18] MEDS ORDERED: Benzonatate 100 MG CAP PO SCH (14:00)
--- NOTE | 2023-12-18 17:40 | NUR ---
Patient remains stable, at bedside. Complained of headache earlier this shift, PRN Tylenol administered and effective. Patient states pain medications help, but pain is never fully gone. Ice pack provided for back of neck for some relief. PRN Tramadol administered due to pain increasing to 7/10. Patient states his urine is dark, encouraged to drink water. Call light within reach, all needs met at this time.
--- NOTE | 2023-12-18 21:46 | NUR ---
PATIENT RESTING IN BED WITH EYES CLSOED WITH TV OFF WITH NO FAMILY PRESENT WITH NO ACUTE DISTRESS NOTED. PATIENT EASILY AROUSED. PATIENT ON ROOM AIR. INTS TO LEFT FOREARM AND WRIST INTACT WITH NO COMPLICATIONS NOTED. ASSESSMENT AND MEDICATION ADMINISTRATION COMPLETED AT THIS TIME. PATIENT TOLERATED WELL. ALL NEEDS MET. BED IN LOW POSITION WITH WHEELS LOCKED WITH RAILS UP X2 AND CALL LIGHT WITHIN REACH.
[2023-12-18] MEDS ORDERED: cefTRIAXone 1 G in Water For Injection,Sterile 10 ML IV SCH (22:00)
[2023-12-19] VITALS (8 sets, daily range): BP systolic 131–152; BP diastolic 72–89; PULSE 71–77; TEMP 98.2–98.4
[2023-12-19 06:55] LABS: BASO % 0.4 % (0.0-2.0); EOS # 0.1 K/mm3 (0.0-0.7); GRAN # 2.6 K/mm3 (1.4-6.5); GRAN % 57.2 % (42.2-75.2); HEMOGLOBIN 12.2 g/dl (13.5-18.0); LYMPH # 1.3 K/mm3 (1.2-3.4); LYMPH % 27.6 % (20.0-51.0); MEAN CELL VOLUME 86 fl (80.0-100.0); MEAN CORPUSCULAR HEMOGLOBIN 30 pg (27-31); MEAN CORPUSCULAR HGB CONC 35 g/dl (33.0-37.0); MEAN PLATELET VOLUME 9.1 fl (7.4-10.4); MONO # 0.5 K/mm3 (0.1-0.6); MONO % 11.2 % (1.7-9.3); PLATELET COUNT 200 K/mm3 (130-400); REDCELL DISTRIBUTION WIDTH-CV 12.1 % (11.5-14.5)
[2023-12-19 06:56] LABS: HEMATOCRIT 35.3 % (42.0-52.0)
[2023-12-19 07:23] LABS: CREATININE, serum 0.88 mg/dL (0.72-1.25); MAGNESIUM 1.8 mg/dL (1.6-2.6); POTASSIUM 3.9 mEq/L (3.5-4.5)
--- NOTE | 2023-12-19 10:02 | NUR ---
Initial visit; Patient and his thanked Assistant Auto Center Manager for looking in on him and offering God's blessings. Patient is preparing to be discharged, he said since he thinks he is doing well. Assistant Auto Center Manager learned they live near [place] so chose to come to [facility] for his care. Assistant Auto Center Manager wished him well.
--- NOTE | 2023-12-19 14:58 | NUR ---
Shift assessment complete this morning. Patient alert and oriented, activity at baseline. No complaints of headache this shift, patient has not requested any pain medication. Patient still coughing but not as frequent or intense as yesterday, no mucus production noted with cough. Lung sounds to right lower lobe have fine crackles noted. Call light within reach.
[2023-12-19] MEDS ORDERED: TESSALON P100 MG/CAP PO (15:56)
[2023-12-19] MEDS ORDERED: PRINIVIL20 MG PO (15:56)
[2023-12-19] MEDS ORDERED: COREG12.5 MG PO (15:57)
[2023-12-19] MEDS ORDERED: OMNICEF 300MG300 MG PO (16:03)
[2023-12-19] MEDS ORDERED: Carvedilol 6.25 MG TAB PO SCH (17:00)
--- NOTE | 2023-12-19 17:41 | NUR ---
Discharge orders obtained. Discharge instructions discussed with patient including follow-up appointments, new medications/changed medications, and education packets. Patient verbalized understanding. IV discontinued to left wrist and forearm with no complications, tips intact. Patient escorted out via ambulation by staff to 's car.
== END 2023-12-19 17:30 | disposition home or self-care (01) | DRG 871 ==
LOC: COL.ER 18:18 → MEDICAL 22:33
PROVIDERS: Emergency Medicine; Internal Medicine; ADMIT Internal Medicine
DX: A41.9 Sepsis, unspecified organism (principal); J18.9 Pneumonia, unspecified organism; E87.1 Hypo-osmolality and hyponatremia; E87.20 Acidosis, unspecified; I42.8 Other cardiomyopathies; E83.52 Hypercalcemia; D64.9 Anemia, unspecified; I44.7 Left bundle-branch block, unspecified; I77.819 Aortic ectasia, unspecified site; R20.0 Anesthesia of skin; I10 Essential (primary) hypertension; Z20.822 Contact with and (suspected) exposure to COVID-19; E11.9 Type 2 diabetes mellitus without complications; Z86.16 Personal history of COVID-19; Z79.82 Long term (current) use of aspirin; Z79.4 Long term (current) use of insulin; Z79.899 Other long term (current) drug therapy
CPT/HCPCS: J0696; J1650; J1815; J3010; J7030; Q9967